=== PATIENT | female | born 1945 | race Caucasian/White ===

== ENCOUNTER → 2018-07-07 | Outpatient (CLI) | payer MEDICARE, BC ==
--- NOTE | 2018-07-10 11:29 | MM ---
Reason for exam: screening (asymptomatic). Last mammogram was performed 3 years and 4 months ago. History: Patient is postmenopausal. Physical Findings: A clinical breast exam by your physician is recommended on an annual basis and results should be correlated with mammographic findings. MG 3D Screening Mammo W/Cad Bilateral CC and MLO view(s) were taken. Prior study comparison: March 10, 2015, bilateral MG screening mammo w CAD. January 03, 2014, bilateral digital screening mammo w/CAD. There are scattered fibroglandular densities. There are benign appearing round vascular calcifications bilaterally. There is no discrete abnormality. ASSESSMENT: Benign, BI-RAD 2 RECOMMENDATION: Routine screening mammogram of both breasts in 1 year.
== END ==
LOC: RADMAMWWP 12:47
PROVIDERS: ATTEND Family Medicine
DX: Z12.31 Encounter for screening mammogram for malignant neoplasm of breast (principal)
CPT/HCPCS: 77063; 77067

== ENCOUNTER → 2023-03-04 | Outpatient (CLI) | payer MEDICARE, BC ==
--- NOTE | 2023-03-04 15:57 | MR ---
EXAMINATION TYPE: MR lumbar spine wo con DATE OF EXAM: 03/04/2023 COMPARISON: 05/09/2015 HISTORY: 77-year-old female M54.50 Lower back pain, radiates into left buttock. TECHNIQUE: Multiplanar, multisequence images of the lumbar spine were acquired without IV contrast. FINDINGS: Redemonstration of a degenerated dextroconvex scoliosis. There may be subtle inferior endplate deformity at L1 towards the left corresponding to a level of co nvex curvature. There is some corresponding edema on STIR sequence and sclerotic features on T1 and T 2. Otherwise, there is moderate degenerative disc disease throughout with variable disc desiccation a nd disc bulging. Variable disc space narrowing as well. Hypertrophic facet arthropathy throughout with levels of ligamentum flavum thickening. Conus medullaris is normal. No suspicious bone marrow replacement. At T12-L1, some ligamentum flavum thickening and minimal disc bulge. No significant spinal canal sten osis. Changes result in moderate right greater than left neuroforaminal stenosis. At L1-L2, diffuse disc bulge with hypertrophic facet arthropathy especially on the left. There is ove rall mild narrowing of the spinal canal and moderate left and mild right neuroforaminal stenosis. At L2-L3, disc bulge. Left lateral recess stenosis due to the curvature. Facet arthropathy. Moderate left greater than right neuroforaminal stenosis. At L3-L4, diffuse disc bulge with marked ligamentum flavum thickening and hypertrophic facet arthropa thy. Changes result in moderate to severe focal spinal canal stenosis that appears slightly progresse d from prior. There is severe left and moderate neural foraminal stenosis. At L4-L5, and ligament flavum thickening with hypertrophic facet arthropathy. Mild circumferential at tenuation of the thecal sac without significant spinal canal stenosis. Changes result in a moderate t o severe right and moderate mild left neuroforaminal stenosis. At L5-S1, ligamentum flavum thickening with hypertrophic facet arthropathy. There is moderate right n euroforaminal stenosis. AP alignment is maintained. Multiple bilateral parapelvic cysts measuring up to 2.6 cm and the left kidney. IMPRESSION: 1. Degenerated dextroconvex scoliosis is redemonstrated. They may be an interval subtle subacute infe rior endplate deformity of L1 towards the left. Overall height is maintained at this time. 2. [id number] multilevel degenerative disc disease advanced hypertrophic facet arthropathy thro ughout. Scattered ligamentum flavum thickening. 3. Changes resulting in moderate to severe focal spinal canal stenosis at L3-L4 that may be slightly progressed from prior. Mild overall narrowing at L1-L2. Otherwise, no jeannette canal compromise. 4. Variable neural foraminal stenoses as outlined above.
== END | disposition home or self-care (01) ==
LOC: RADMRIMAIN 12:46
PROVIDERS: ATTEND Family Medicine
DX: M51.37 Other intervertebral disc degeneration, lumbosacral region (principal); M99.73 Connective tissue and disc stenosis of intervertebral foramina of lumbar region; M47.816 Spondylosis without myelopathy or radiculopathy, lumbar region; M43.9 Deforming dorsopathy, unspecified
CPT/HCPCS: 72148

== ENCOUNTER 2023-03-07 16:52 | Observation (INO) | payer MEDICARE, BC ==
--- NOTE | 2023-03-07 17:23 | ED ---
General Adult HPI - General Chief complaint: Shortness of Breath Stated complaint: sob Time Seen by Provider: 03/07/23 17:13 Source: patient, RN notes reviewed, old records reviewed Mode of arrival: ambulatory Limitations: no limitations - History of Present Illness Initial comments: 77-year-old female presenting for evaluation of dyspnea and palpitations. Patient states her symptoms began approximately one week ago and was initially weakness, fatigue, and nausea with poor appetite. About 5 days ago she developed palpitations and the exertional dyspnea. She had a recent travel with prolonged airplane ride. She reports weight loss over this. Due to poor intake. No fever. No central chest pain. - Related Data Home Medications Medication Instructions Recorded Confirmed Aspirin [Adult Low Dose Aspirin EC] 81 mg PO DAILY 08/14/15 03/07/23 Donepezil HCl 5 mg PO DAILY 08/14/15 03/07/23 Levothyroxine Sodium [Synthroid] 50 mcg PO DAILY 08/14/15 03/07/23 Metoprolol Tartrate 12.5 mg PO BID 08/14/15 03/07/23 Rosuvastatin [Crestor] 10 mg PO HS 08/14/15 03/07/23 Bumetanide [BUMEX] 0.5 mg PO DAILY 03/07/23 03/07/23 Gabapentin [Neurontin] 300 mg PO TID 03/07/23 03/07/23 Allergies Allergy/AdvReac Type Severity Reaction Status Date / Time morphine AdvReac Nausea & Verified 03/07/23 17:57 Vomiting Review of Systems ROS Statement: Those systems with pertinent positive or pertinent negative responses have been documented in the HPI. ROS Other: All systems not noted in ROS Statement are negative. Past Medical History Past Medical History: Hyperlipidemia, Hypertension, Thyroid Disorder History of Any Multi-Drug Resistant Organisms: None Reported Past Surgical History: No Surgical Hx Reported Past Psychological History: No Psychological Hx Reported Smoking Status: Never smoker Past Alcohol Use History: None Reported Past Drug Use History: None Reported General Exam Limitations: no limitations General appearance: alert, in no apparent distress Head exam: Present: atraumatic, normocephalic Eye exam: Present: normal appearance, PERRL ENT exam: Present: normal exam Neck exam: Present: normal inspection. Absent: tenderness, meningismus Respiratory exam: Absent: respiratory distress, wheezes, rales, rhonchi Cardiovascular Exam: Present: normal rhythm, tachycardia GI/Abdominal exam: Present: soft. Absent: distended, tenderness, guarding Extremities exam: Present: calf tenderness (Bilateral). Absent: pedal edema Neurological exam: Present: alert, oriented X3, CN II-XII intact. Absent: motor sensory deficit Psychiatric exam: Present: normal affect, normal mood Skin exam: Present: warm, dry, intact. Absent: cyanosis, diaphoretic Course Vital Signs 03/07/23 03/07/23 03/07/23 17:08 17:32 18:00 Temperature 98.2 F Pulse Rate 107 H 90 90 Respiratory 20 17 18 Rate Blood Pressure 97/68 115/73 O2 Sat by Pulse 84 L 96 92 L Oximetry 03/07/23 03/07/23 03/07/23 18:55 19:10 19:49 Temperature Pulse Rate Respiratory Rate Blood Pressure O2 Sat by Pulse 92 L 100 96 Oximetry Medical Decision Making - Medical Decision Making Was pt. sent in by a medical professional or institution (, PA, WOOD BUCKER, urgent care, hospital, or halfway...) When possible be specific @ -No Did you speak to anyone other than the patient for history (EMS, parent, family, police, friend...)? What history was obtained from this source @ -[Patient's daughter Did you review nursing and triage notes (agree or disagree)? Why? @ -I reviewed and agree with nursing and triage notes Were old charts reviewed (outside hosp., previous admission, EMS record, old EKG, old radiological studies, urgent care reports/EKG's, halfway records)? Report findings @ -No old charts were reviewed Differential Diagnosis (chest pain, altered mental status, abdominal pain women, abdominal pain men, vaginal bleeding, weakness, fever, dyspnea, syncope, headache, dizziness, GI bleed, back pain, seizure, CVA, palpatations, mental health, musculoskeletal)? @ -Differential Dyspnea: Coronary syndrome, arrhythmia, tamponade, asthma, COPD, pulmonary embolism, pneumonia, pneumothorax, pulmonary effusion, anaphylaxis, diabetic ketoacidosis, flailed chest, pulmonary contusion, diaphragmatic rupture, anemia, neuromuscular, this is not meant to be an all-inclusive list. EKG interpreted by me (3pts min.). @ -Sinus rhythm rate of 84, OH interval 181, QRS duration 100, QTC 429, no ST segment elevation. X-rays interpreted by me (1pt min.). @ -[Chest XR negative for pneumothorax, no focal pneumonia CT interpreted by me (1pt min.). @ -[CT showing cardiomegaly with vascular prominence, no PE U/S interpreted by me (1pt. min.). @ -None done What testing was considered but not performed or refused? (CT, X-rays, U/S, labs)? Why? @ -None What meds were considered but not given or refused? Why? @ -None Did you discuss the management of the patient with other professionals (professionals i.e. , PA, WOOD BUCKER, lab, RT, psych nurse, social problems specialist, sharepoint web developer, teacher, job placement officer, watch case polisher)? Give summary @ -[Dr. Jackson Was smoking cessation discussed for >3mins.? @ -No Was critical care preformed (if so, how long)? @ -No Were there social determinants of health that impacted care today? How? (Homelessness, low income, unemployed, alcoholism, drug addiction, transpo rtation, low edu. Level, literacy, decrease access to med. care, care home, rehab)? @ -No Was there de-escalation of care discussed even if they declined (Discuss DNR or withdrawal of care, Hospice)? DNR status @ -No What co-morbidities impacted this encounter? (DM, HTN, Smoking, COPD, CAD, Cancer, CVA, ARF, Chemo, Hep., AIDS, mental health diagnosis, sleep apnea, morbid obesity)? @ -[CHF Was patient admitted / discharged? Hospital course, mention meds given and route, prescriptions, significant lab abnormalities, going to OR and other pertinent info. @ -77-year-old female with dyspnea, hypoxia, recent travel. Patient is worked up for dyspnea including CBC, CMP, troponin and BNP. She receives an EKG chest x-ray and CT angiography. Ultimately CT is showing cardiomegaly with increased vascular prominence. This may be related to CHF although her troponin and BNP are negative. Patient will benefit from echo she will be admitted for elective replacement including hypokalemia as well as Lasix for CHF. She'll be admitted to internal medicine with cardiology on consult. Undiagnosed new problem with uncertain prognosis? @ -No Drug Therapy requiring intensive monitoring for toxicity (Heparin, Nitro, Insulin, Cardizem)? @ -No Were any procedures done? @ -No] Diagnosis/symptom? @ -Hypoxia, CHF, hypokalemia Acute, or Chronic, or Acute on Chronic? @ -[Acute Uncomplicated (without systemic symptoms) or Complicated (systemic symptoms)? @ -[default] Side effects of treatment? @ -[No] Exacerbation, Progression, or Severe Exacerbation? @ -[No] Poses a threat to life or bodily function? How? (Chest pain, USA, NH, pneumonia, PE, COPD, DKA, ARF, appy, cholecystitis, CVA, Diverticulitis, Homicidal, Suicidal, threat to staff... and all critical care pts) @ -[Yes, hypoxia, respiratory failure - Lab Data Result diagrams: 03/07/23 17:32 03/07/23 17:32 Lab Results 03/07/23 03/07/23 03/07/23 Range/Units 17:32 17:32 17:32 WBC 10.0 (3.8-10.6) k/uL RBC 5.16 (3.80-5.40) m/uL Hgb 16.1 H (11.4-16.0) gm/dL Hct 46.4 H (34.0-46.0) % MCV 89.9 (80.0-100.0) fL MCH 31.2 (25.0-35.0) pg MCHC 34.7 (31.0-37.0) g/dL RDW 15.0 (11.5-15.5) % Plt Count 256 (150-450) k/uL MPV 7.6 Neutrophils % 71 % Lymphocytes % 21 % Monocytes % 5 % Eosinophils % 2 % Basophils % 0 % Neutrophils # 7.1 (1.3-7.7) k/uL Lymphocytes # 2.1 (1.0-4.8) k/uL Monocytes # 0.5 (0-1.0) k/uL Eosinophils # 0.2 (0-0.7) k/uL Basophils # 0.0 (0-0.2) k/uL PT 10.6 (9.0-12.0) sec INR 1.0 (<1.2) APTT 21.8 L (22.0-30.0) sec Sodium 135 L (137-145) mmol/L Potassium 2.7 L* (3.5-5.1) mmol/L Chloride 93 L (98-107) mmol/L Carbon Dioxide 32 H (22-30) mmol/L Anion Gap 10 mmol/L BUN 31 H (7-17) mg/dL Creatinine 0.90 (0.52-1.04) mg/dL Est GFR (CKD-EPI)AfAm 71 (>60 ml/min/1.73 sqM) Est GFR (CKD-EPI)NonAf 62 (>60 ml/min/1.73 sqM) Glucose 118 H (74-99) mg/dL Plasma Lactic Acid Ken (0.7-2.0) mmol/L Calcium 9.6 (8.4-10.2) mg/dL Magnesium (1.6-2.3) mg/dL Total Bilirubin 1.8 H (0.2-1.3) mg/dL AST 34 (14-36) U/L ALT 32 (4-34) U/L Alkaline Phosphatase 159 H (38-126) U/L Troponin I (0.000-0.034) ng/mL NT-Pro-B Natriuret Pep pg/mL Total Protein 6.8 (6.3-8.2) g/dL Albumin 4.2 (3.5-5.0) g/dL 03/07/23 03/07/23 03/07/23 Range/Units 17:32 17:32 17:32 WBC (3.8-10.6) k/uL RBC (3.80-5.40) m/uL Hgb (11.4-16.0) gm/dL Hct (34.0-46.0) % MCV (80.0-100.0) fL MCH (25.0-35.0) pg MCHC (31.0-37.0) g/dL RDW (11.5-15.5) % Plt Count (150-450) k/uL MPV Neutrophils % % Lymphocytes % % Monocytes % % Eosinophils % % Basophils % % Neutrophils # (1.3-7.7) k/uL Lymphocytes # (1.0-4.8) k/uL Monocytes # (0-1.0) k/uL Eosinophils # (0-0.7) k/uL Basophils # (0-0.2) k/uL PT (9.0-12.0) sec INR (<1.2) APTT (22.0-30.0) sec Sodium (137-145) mmol/L Potassium (3.5-5.1) mmol/L Chloride (98-107) mmol/L Carbon Dioxide (22-30) mmol/L Anion Gap mmol/L BUN (7-17) mg/dL Creatinine (0.52-1.04) mg/dL Est GFR (CKD-EPI)AfAm (>60 ml/min/1.73 sqM) Est GFR (CKD-EPI)NonAf (>60 ml/min/1.73 sqM) Glucose (74-99) mg/dL Plasma Lactic Acid Ken 2.0 (0.7-2.0) mmol/L Calcium (8.4-10.2) mg/dL Magnesium (1.6-2.3) mg/dL Total Bilirubin (0.2-1.3) mg/dL AST (14-36) U/L ALT (4-34) U/L Alkaline Phosphatase (38-126) U/L Troponin I <0.012 (0.000-0.034) ng/mL NT-Pro-B Natriuret Pep 154 pg/mL Total Protein (6.3-8.2) g/dL Albumin (3.5-5.0) g/dL 03/07/23 Range/Units 18:22 WBC (3.8-10.6) k/uL RBC (3.80-5.40) m/uL Hgb (11.4-16.0) gm/dL Hct (34.0-46.0) % MCV (80.0-100.0) fL MCH (25.0-35.0) pg MCHC (31.0-37.0) g/dL RDW (11.5-15.5) % Plt Count (150-450) k/uL MPV Neutrophils % % Lymphocytes % % Monocytes % % Eosinophils % % Basophils % % Neutrophils # (1.3-7.7) k/uL Lymphocytes # (1.0-4.8) k/uL Monocytes # (0-1.0) k/uL Eosinophils # (0-0.7) k/uL Basophils # (0-0.2) k/uL PT (9.0-12.0) sec INR (<1.2) APTT (22.0-30.0) sec Sodium (137-145) mmol/L Potassium (3.5-5.1) mmol/L Chloride (98-107) mmol/L Carbon Dioxide (22-30) mmol/L Anion Gap mmol/L BUN (7-17) mg/dL Creatinine (0.52-1.04) mg/dL Est GFR (CKD-EPI)AfAm (>60 ml/min/1.73 sqM) Est GFR (CKD-EPI)NonAf (>60 ml/min/1.73 sqM) Glucose (74-99) mg/dL Plasma Lactic Acid Ken (0.7-2.0) mmol/L Calcium (8.4-10.2) mg/dL Magnesium 2.3 (1.6-2.3) mg/dL Total Bilirubin (0.2-1.3) mg/dL AST (14-36) U/L ALT (4-34) U/L Alkaline Phosphatase (38-126) U/L Troponin I (0.000-0.034) ng/mL NT-Pro-B Natriuret Pep pg/mL Total Protein (6.3-8.2) g/dL Albumin (3.5-5.0) g/dL Disposition Clinical Impression: Congestive heart failure, Hypokalemia Disposition: ADMITTED IP TO THIS HOSP Condition: Stable Is patient prescribed a controlled substance at d/c from ED?: No Referrals: eYnni Brar DO [Primary Care Provider] - 1-2 days Time of Disposition: 20:01
[2023-03-07 17:43] LABS: Basophils % (A) 0 %; Eosinophils # (A) 0.2 k/uL (0-0.7); Eosinophils % (A) 2 %; HCT 46.4 % (34.0-46.0); HGB 16.1 gm/dL (11.4-16.0); Lymphocytes # (A) 2.1 k/uL (1.0-4.8); Lymphocytes % (A) 21 %; MCH 31.2 pg (25.0-35.0); MCHC 34.7 g/dL (31.0-37.0); MCV 89.9 fL (80.0-100.0); Mean Platelet Volume 7.6; Monocytes # (A) 0.5 k/uL (0-1.0); Monocytes % (A) 5 %; Neutrophils # (A) 7.1 k/uL (1.3-7.7); Neutrophils % (A) 71 %; Platelet Count 256 k/uL (150-450); RBC 5.16 m/uL (3.80-5.40)
--- NOTE | 2023-03-07 17:54 | XR ---
EXAMINATION TYPE: XR chest 1V portable DATE OF EXAM: 03/07/2023 5:41 PM COMPARISON: Chest radiographs from TECHNIQUE: XR chest 1V portable Frontal view of the chest. CLINICAL INDICATION:Female, 77 years old with history of dyspnea; FINDINGS: Lungs/Pleura: There is flattening of the diaphragm with increased lucency of the lungs. No evidence o f pneumothorax, pleural effusion or focal consolidation. Pulmonary vascularity: Unremarkable. Heart/mediastinum: Cardiomediastinal silhouette is unremarkable. Musculoskeletal: No acute osseous pathology. IMPRESSION: 1. No acute cardiopulmonary disease process. 2. COPD changes.
[2023-03-07 17:57] LABS: ALT 32 U/L (4-34); AST 34 U/L (14-36); African American GFR (CKD) 71 (>60 ml/min/1.73 sqM); Albumin 4.2 g/dL (3.5-5.0); Alkaline Phosphatase 159 U/L (38-126); Anion Gap 10 mmol/L; Blood Urea Nitrogen 31 mg/dL (7-17); Calcium 9.6 mg/dL (8.4-10.2); Carbon Dioxide 32 mmol/L (22-30); Chloride 93 mmol/L (98-107); Glucose 118 mg/dL (74-99); Non-African American GFR(CKD) 62 (>60 ml/min/1.73 sqM); Sodium 135 mmol/L (137-145); Total Bilirubin 1.8 mg/dL (0.2-1.3); Total Protein 6.8 g/dL (6.3-8.2)
[2023-03-07 18:02] LABS: Partial Thromboplastin Time 21.8 sec (22.0-30.0)
[2023-03-07 18:05] LABS: Prothrombin Time 10.6 sec (9.0-12.0)
[2023-03-07 18:20] LABS: Potassium 2.7 mmol/L (3.5-5.1)
[2023-03-07] MEDS ORDERED: POTASSIUM CHLORIDE ER 20 MEQ TAB.ER PO STA (18:22)
--- NOTE | 2023-03-07 19:25 | CT ---
EXAMINATION TYPE: CT angio chest CT DLP: 320.7 mGycm, Automated exposure control for dose reduction was used. DATE OF EXAM: 03/07/2023 7:05 PM COMPARISON: Chest radiograph from same day. CLINICAL INDICATION:Female, 77 years old with history of abril/hypoxia; ABRIL/hypoxia TECHNIQUE/CONTRAST: CTA scan of the thorax is performed with IV Contrast, patient injected with 63ml mL of Isovue 370, pu lmonary embolism protocol. MIP images are created and reviewed these are created on a separate works tation.. FINDINGS: Pulmonary Artery: There is no evidence for a filling defect within the pulmonary vasculature to sugge st acute pulmonary embolism. The pulmonary artery is of normal size. Lungs/Pleura: Intralobular septal thickening is present. Right upper lung 4 mm pulmonary nodule. No e vidence of focal consolidation, pleural effusion or pneumothorax. Airway: Large airways are patent. Heart: The heart is enlarged for size. Vasculature: Mild atherosclerotic calcifications are present throughout the aorta and its branches. Mediastinum: No gross evidence of adenopathy. Musculoskeletal: No acute osseous abnormalities Soft Tissues: Unremarkable. Lower neck: No significant findings. Upper Abdomen: Gallbladder surgically absent. IMPRESSION: 1. No evidence of pulmonary embolism. 2. Cardiomegaly with pulmonary vascular prominence correlate with serum BNP. 3. Right upper lung 4 mm pulmonary nodule consider follow-up in one year to ensure stability.
[2023-03-07] MEDS ORDERED: FUROSEMIDE 10 MG/ML 4 ML VIAL IV STA (19:52)
[2023-03-07] MEDS ORDERED: NALOXONE 0.4 MG/ML 1 ML VIAL IV PRN (19:53)
[2023-03-07] MEDS ORDERED: ACETAMINOPHEN TAB 325 MG TAB PO PRN (19:53)
[2023-03-07] MEDS: POTASSIUM CHLORIDE 10 MEQ in WATER FOR INJECTION 1 100ML.BAG IVPB SCH ×3 (20:05→22:47)
[2023-03-08] MEDS: POTASSIUM CHLORIDE 10 MEQ in WATER FOR INJECTION 1 100ML.BAG IVPB SCH (00:02)
[2023-03-08] MEDS: METOPROLOL TARTRATE 12.5 MG TAB PO SCH ×3 (00:02→20:40)
[2023-03-08] MEDS ORDERED: BUMETANIDE 0.5 MG TABLET PO SCH (09:00)
[2023-03-08 10:18] LABS: African American GFR (CKD) 71 (>60 ml/min/1.73 sqM); Anion Gap 6 mmol/L; Blood Urea Nitrogen 28 mg/dL (7-17); Calcium 8.8 mg/dL (8.4-10.2); Carbon Dioxide 32 mmol/L (22-30); Chloride 97 mmol/L (98-107); Glucose 95 mg/dL (74-99); Non-African American GFR(CKD) 62 (>60 ml/min/1.73 sqM); Potassium 2.9 mmol/L (3.5-5.1); Sodium 135 mmol/L (137-145)
--- NOTE | 2023-03-08 10:52 | P.CRDCN ---
History of Present Illness History of present illness: HISTORY OF PRESENT ILLNESS: This is a 77-year-old female with a past medical history significant for hypertension, hyperlipidemia, congestive heart failure, and hypothyroidism. Patient follows with a Dr. Ann in [facility]. We have been asked to see the patient in consultation for congestive heart failure. Patient examined at the bedside. Patient states that she recently went on vacation with some friends and was very stressed about being so far away from home. She states that she lost her appetite and has lost approximately 20 pounds in the last month. She states over the course of the last week she has been feeling short of breath with exertion and having palpitations. She states the symptoms are only present when she is exerting herself. She is currently laying flat in bed and denies any symptoms. She does report having some dizziness and lightheadedness when ambulating. She denies any chest pain or pressure. She states that she has a yearly stress test with her primary hand mexican food maker which are negative to her knowledge. * EKG reveals sinus mechanism with no signs of acute ischemia * Chest xray no acute cardio pulmonary disease. COPD changes. * Laboratory data: W BC 10.0. Hemoglobin 16.1. Platelet count 256. Sodium 135. Potassium 2.9. BUN 28. Creatinine 0.98. Troponin negative 1. ProBNP 154. * Current home cardiac medications include Bumex 0.5 mg daily, aspirin 81 mg daily, Crestor 10 mg at night, metoprolol tartrate toe 0.5 mg twice a day REVIEW OF SYSTEMS: At the time of my exam: CONSTITUTIONAL: Denies fever or chills. HEENT: Denies blurred vision, vision changes, or eye pain. Denies hemoptysis CARDIOVASCULAR: Denies chest pain. Denies orthopnea. Denies PND. Denies palpitations RESPIRATORY: Denies shortness of breath. GASTROINTESTINAL: Denies abdominal pain. Denies nausea or vomiting. HEMATOLOGIC: Denies bleeding disorders. GENITOURINARY: Denies any blood in urine. SKIN: Denies pruitis. Denies rash. PHYSICAL EXAM: VITAL SIGNS: Reviewed. GENERAL: Well-developed in no acute distress. HEENT: Head is normocephalic. Pupils are equal, round. Sclerae anicteric. Mucous membranes of the mouth are moist. Neck supple. No JVD or thyromegaly LUNGS: Respirations even and unlabored. Lungs essentially clear to auscultation bilaterally. HEART: Regular rate and rhythm. S1 and S2 heard. ABDOMEN: Soft. Nondistended. Nontender. EXTREMITIES: Normal range of motion. No clubbing or cyanosis. Peripheral pulses intact. No lower extremity edema NEUROLOGIC: Awake and alert. Oriented x 3. ASSESSMENT: Shortness of breath and palpitations with exertion Recent weight loss of 20 pounds Chronic congestive heart failure, type unknown, currently euvolemic, no evidence of acute exacerbation Hypokalemia Hypertension Hyperlipidemia History of hypothyroidism PLAN: Obtain 2-D echo to assess cardiac structure and function Resume home cardiac medications Discontinue IV lasix. Hold Bumex now and at discharge. Patient may be discharged home this afternoon Patient to follow up with her primary hand mexican food maker Nurse practitioner note has been reviewed by physician. Signing provider agrees with the documented findings, assessment, and plan of care. Past Medical History Past Medical History: Hyperlipidemia, Hypertension, Thyroid Disorder History of Any Multi-Drug Resistant Organisms: None Reported Past Surgical History: Section, Cholecystectomy, Hysterectomy Past Anesthesia/Blood Transfusion Reactions: No Reported Reaction Past Psychological History: No Psychological Hx Reported Smoking Status: Never smoker Past Alcohol Use History: None Reported Past Drug Use History: None Reported - Past Family History Mother Family Medical History: Cancer Medications and Allergies Home Medications Medication Instructions Recorded Confirmed Type Aspirin [Adult Low Dose Aspirin EC] 81 mg PO DAILY 08/14/15 03/07/23 History Donepezil HCl 5 mg PO DAILY 08/14/15 03/07/23 History Levothyroxine Sodium [Synthroid] 50 mcg PO DAILY 08/14/15 03/07/23 History Metoprolol Tartrate 12.5 mg PO BID 08/14/15 03/07/23 History Rosuvastatin [Crestor] 10 mg PO HS 08/14/15 03/07/23 History Bumetanide [BUMEX] 0.5 mg PO DAILY 03/07/23 03/07/23 History Gabapentin [Neurontin] 300 mg PO TID 03/07/23 03/07/23 History Allergies Allergy/AdvReac Type Severity Reaction Status Date / Time morphine AdvReac Nausea & Verified 03/07/23 17:57 Vomiting Physical Exam Vitals: Vital Signs Temp Pulse Pulse Pulse Resp BP BP 03/08/23 08:15 97.9 F 108 H 16 108/62 03/08/23 03:38 98.2 F 77 16 99/66 03/08/23 00:00 97.9 F 76 18 103/63 03/07/23 22:00 85 16 118/74 03/07/23 21:00 03/07/23 19:49 03/07/23 19:10 03/07/23 18:55 03/07/23 18:00 90 18 115/73 03/07/23 17:32 90 17 03/07/23 17:08 98.2 F 107 H 20 97/68 Pulse Ox 03/08/23 08:15 93 L 03/08/23 03:38 93 L 03/08/23 00:00 93 L 03/07/23 22:00 95 03/07/23 21:00 96 03/07/23 19:49 96 03/07/23 19:10 100 03/07/23 18:55 92 L 03/07/23 18:00 92 L 03/07/23 17:32 96 03/07/23 17:08 84 L Intake and Output 03/07/23 03/08/23 03/08/23 22:59 06:59 14:59 Intake Total 180 Output Total 100 Balance -100 180 Intake: Oral 180 Output: Urine 100 Other: Weight 81.647 kg 81.5 kg Results 03/07/23 17:32 03/08/23 09:48 Cardiac Enzymes 03/07/23 03/07/23 Range/Units 17:32 17:32 AST 34 (14-36) U/L Troponin I <0.012 (0.000-0.034) ng/mL Coagulation 03/07/23 Range/Units 17:32 PT 10.6 (9.0-12.0) sec APTT 21.8 L (22.0-30.0) sec CBC 03/07/23 Range/Units 17:32 WBC 10.0 (3.8-10.6) k/uL RBC 5.16 (3.80-5.40) m/uL Hgb 16.1 H (11.4-16.0) gm/dL Hct 46.4 H (34.0-46.0) % Plt Count 256 (150-450) k/uL Comprehensive Metabolic Panel 03/07/23 Range/Units 17:32 Sodium 135 L (137-145) mmol/L Potassium 2.7 L* (3.5-5.1) mmol/L Chloride 93 L (98-107) mmol/L Carbon Dioxide 32 H (22-30) mmol/L BUN 31 H (7-17) mg/dL Creatinine 0.90 (0.52-1.04) mg/dL Glucose 118 H (74-99) mg/dL Calcium 9.6 (8.4-10.2) mg/dL AST 34 (14-36) U/L ALT 32 (4-34) U/L Alkaline Phosphatase 159 H (38-126) U/L Total Protein 6.8 (6.3-8.2) g/dL Albumin 4.2 (3.5-5.0) g/dL Current Medications Generic Name Dose Route Start Last Admin Trade Name Freq PRN Reason Stop Dose Admin Acetaminophen 650 mg 03/07/23 19:53 Acetaminophen Tab 325 Mg Tab PO Q6HR PRN Mild Pain or Fever > 100.5 Metoprolol Tartrate 12.5 mg 03/07/23 23:45 03/08/23 08:16 Metoprolol Tartrate 12.5 Mg Tab PO 12.5 mg BID JACOB Administration Naloxone HCl 0.2 mg 03/07/23 19:53 Naloxone 0.4 Mg/Ml 1 Ml Vial IV Q2M PRN Opioid Reversal Intake and Output 03/07/23 03/08/23 03/08/23 22:59 06:59 14:59 Intake Total 180 Output Total 100 Balance -100 180 Intake: Oral 180 Output: Urine 100 Other: Weight 81.647 kg 81.5 kg 03/07/23 17:32 03/07/23 17:32
[2023-03-08] MEDS: ASPIRIN 81 MG PO SCH (12:06)
[2023-03-08] MEDS: POTASSIUM CHLORIDE ER 20 MEQ TAB.ER PO SCH ×2 (12:06→15:36)
--- NOTE | 2023-03-08 13:05 | CA ---
Transthoracic Echo Report Name: Sera Jones Age: 77 Gender: F : 1945 Exam Date: 03/08/2023 10:39 Exam Location: [facility] Ht (in): 67 Wt (lb): 179 Ordering Physician: Ruben Baez MD Attending/Referring Phys: [id number], [facility] [employer] Chair Pacheco Lombardo Procedure CPT: Indications: chf Cardiac Hx: Technical Quality: Very technically difficult study Contrast 1: Lumason Total Dose (mL): 5 Contrast 2: Agitated Saline Total Dose (mL): 10 MEASUREMENTS (Male / Female) Normal Values 2D ECHO LV Diastolic Diameter PLAX 3.4 cm 4.2 - 5.9 / 3.9 - 5.3 cm LV Systolic Diameter PLAX 2.4 cm IVS Diastolic Thickness 1.2 cm 0.6 - 1.0 / 0.6 - 0.9 cm LVPW Diastolic Thickness 1.3 cm 0.6 - 1.0 / 0.6 - 0.9 cm LV Relative Wall Thickness 0.7 RV Internal Dim ED PLAX 2.7 cm LVOT Diameter 2.0 cm Aortic Root Diameter 2.7 cm LA Systolic Diameter LX 2.6 cm 3.0 - 4.0 / 2.7 - 3.8 cm LV Diastolic Volume MOD BP 24.7 cm??? 67 - 155 / 56 - 104 cm??? LV Systolic Volume MOD BP 7.2 cm??? 22 - 58 / 19 - 49 cm??? LV Ejection Fraction MOD BP 70.7 % >= 55 % LV Diastolic Volume MOD 4C 23.7 cm??? LV Systolic Volume MOD 4C 6.3 cm??? LV Ejection Fraction MOD 4C 73.6 % LV Diastolic Length 4C 6.1 cm LV Systolic Length 4C 4.6 cm LV Diastolic Volume MOD 2C 25.6 cm??? LV Systolic Volume MOD 2C 7.9 cm??? LV Ejection Fraction MOD 2C 69.2 % LV Diastolic Length 2C 6.2 cm LV Systolic Length 2C 4.9 cm LA Volume 29.3 cm??? 18 - 58 / 22 - 52 cm??? Ascending Aorta Diameter 2.8 cm DOPPLER AV Peak Velocity 100.9 cm/s AV Peak Gradient 4.1 mmHg LVOT Peak Velocity 89.9 cm/s LVOT Peak Gradient 3.2 mmHg AV Area Cont Eq pk 2.9 cm??? Mitral E Point Velocity 50.9 cm/s Mitral A Point Velocity 78.1 cm/s Mitral E to A Ratio 0.7 MV Deceleration Time 178.7 ms TR Peak Velocity 164.6 cm/s TR Peak Gradient 10.8 mmHg Right Ventricular Systolic Press 16.0 mmHg PV Peak Velocity 84.6 cm/s PV Peak Gradient 2.9 mmHg FINDINGS Left Ventricle Left ventricular ejection fraction is estimated at 55-60%.left ventricular cavity size normal. Normal left ventricular wall motion. Mildly increased left ventricular wall thickness. Right Ventricle Normal right ventricular size. Right Atrium Normal right atrial size. Left Atrium Normal left atrial size. Mitral Valve Structurally normal mitral valve. Mild mitral regurgitation. Aortic Valve Trileaflet aortic valve. No aortic valve stenosis or regurgitation. Tricuspid Valve Tricuspid valve not well visualized. Mild tricuspid regurgitation. Pulmonic Valve Pulmonic valve not well visualized. No pulmonic regurgitation. Pericardium Normal pericardium. Aorta Normal size aortic root and proximal ascending aorta. CONCLUSIONS 1. Normal left ventricle size and systolic function 2. Mild mitral and tricuspid regurgitation Previewed by: Dr. Liz Victoria MD (Electronically Signed) Final Date: 08 March 2023 13:04
[2023-03-08 13:26] VITALS: BMI 28.1
--- NOTE | 2023-03-08 15:52 | CT ---
EXAMINATION TYPE: CT abdomen pelvis wo con DATE OF EXAM: 03/08/2023 COMPARISON: 08/14/2015 HISTORY: 77-year-old female Upset stomach for days CT DLP: 730.9 mGycm. Automated exposure control for dose reduction was used. TECHNIQUE: Contiguous axial scanning of the abdomen and pelvis without IV contrast. Coronal and sagit gerald reconstructions performed. FINDINGS: Heart normal size without pericardial effusion. Groundglass changes in the lower lungs are nonspecifi c. Some emphysematous changes also present. Postsurgical changes GE junction. The wrap appears somewhat patulous extending to the central aspect of the left liver lobe, axial and 13. Noncontrast appearance of the liver, adrenal glands, spleen, and pancreas show no gross abnormality. Hyperdensities within the kidneys favored to represent excreting contrast given the patient's recent CTA chest. Left-sided parapelvic cysts measuring up to 2.3 cm. No dilated small bowel, free fluid, or free air. No mesenteric or retroperitoneal lymphadenopathy. Normal appendix. Sigmoid diverticulosis. No pericolonic inflammatory change. Solid stool distending the rectum up to 5 .5 cm wide. Bladder urine distended. Uterus surgically absent. Both ovaries are visualized. A few pelvic phleboli ths. No abnormal fluid collection the pelvis or pelvic lymphadenopathy. Bones: Dextroconvex scoliosis lumbar spine. Osteopenia. [facility] in the lower thoracic spine. 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 IMPRESSION: 1. Previous Christopher fundoplication. The wrap appears patulous, containing air and extending to abut t he central left liver lobe, axial images 11 through 13. Correlate for any recurrent symptoms. 2. Some groundglass changes in the lower lungs are nonspecific. Correlate for any acute respiratory symptoms to exclude early infiltrates. 3. Sigmoid diverticulosis without acute diverticulitis. Solid stool distending the rectum up to 5.5 cm wide.
[2023-03-08] MEDS ORDERED: ATORVASTATIN 20 MG TAB PO SCH (21:00)
--- NOTE | 2023-03-08 21:42 | P.HPIM ---
History of Present Illness H&P Date: 03/08/23 Sera Jones is a 77 yo F with PMH of hypertension, hyperlipidemia, congestive heart failure, and hypothyroidism who presented to the ED complaining of shortness of breath and palpitations. Patient states that she recently went on vacation and since getting back she has been feeling short of breath with exertion. She also complains of palpitations she describes as heart racing. She does report having some dizziness and lightheadedness when ambulating. She denies any chest pain or pressure. On presentation SpO2 84% on RA, WBC 10.0, Hgb 16.1, Na 135, K 2.7, Cr 0.9, BNP 154, trop negative. CTA with pulmonary vascular prominence and cardiomegaly. Review of Systems All systems: negative Constitutional: Denies chills, Denies fever Eyes: denies blurred vision, denies pain Ears, nose, mouth and throat: Denies headache, Denies sore throat Cardiovascular: Reports dyspnea on exertion, Denies chest pain, Denies shortness of breath Respiratory: Denies cough Gastrointestinal: Denies abdominal pain, Denies diarrhea, Denies nausea, Denies vomiting Genitourinary: Denies dysuria, Denies hematuria Musculoskeletal: Denies myalgias Integumentary: Denies pruritus, Denies rash Neurological: Denies numbness, Denies weakness Psychiatric: Denies anxiety, Denies depression Endocrine: Denies fatigue, Denies weight change Past Medical History Past Medical History: Hyperlipidemia, Hypertension, Thyroid Disorder History of Any Multi-Drug Resistant Organisms: None Reported Past Surgical History: Section, Cholecystectomy, Hysterectomy Past Anesthesia/Blood Transfusion Reactions: No Reported Reaction Past Psychological History: No Psychological Hx Reported Smoking Status: Never smoker Past Alcohol Use History: None Reported Past Drug Use History: None Reported - Past Family History Mother Family Medical History: Cancer Medications and Allergies Home Medications Medication Instructions Recorded Confirmed Type Aspirin [Adult Low Dose Aspirin EC] 81 mg PO DAILY 08/14/15 03/07/23 History Donepezil HCl 5 mg PO DAILY 08/14/15 03/07/23 History Levothyroxine Sodium [Synthroid] 50 mcg PO DAILY 08/14/15 03/07/23 History Metoprolol Tartrate 12.5 mg PO BID 08/14/15 03/07/23 History Rosuvastatin [Crestor] 10 mg PO HS 08/14/15 03/07/23 History Bumetanide [BUMEX] 0.5 mg PO DAILY 03/07/23 03/07/23 History Gabapentin [Neurontin] 300 mg PO TID 03/07/23 03/07/23 History Allergies Allergy/AdvReac Type Severity Reaction Status Date / Time morphine AdvReac Nausea & Verified 03/07/23 17:57 Vomiting Physical Exam Vitals: Vital Signs Temp Pulse Pulse Pulse Resp BP BP 03/08/23 15:35 69 14 104/72 03/08/23 11:35 97.1 F L 80 16 112/76 03/08/23 08:15 97.9 F 108 H 16 108/62 03/08/23 03:38 98.2 F 77 16 99/66 03/08/23 00:00 97.9 F 76 18 103/63 03/07/23 22:00 85 16 118/74 Pulse Ox 03/08/23 15:35 94 L 03/08/23 11:35 95 03/08/23 08:15 93 L 03/08/23 03:38 93 L 03/08/23 00:00 93 L 03/07/23 22:00 95 Intake and Output 03/08/23 03/08/23 03/08/23 06:59 14:59 22:59 Intake Total 300 180 Output Total 100 Balance -100 300 180 Intake: Oral 300 180 Output: Urine 100 Other: # Voids 3 Weight 81.5 kg 81.5 kg Gen: elderly female in NAD HEENT: NC/AT, mmm Neck: supple, no thyromegaly or JVD CV: RRR, no murmur. Pulses 2+ Lungs: Normal effort, clear throughout Abd: soft, nontender, non distended Neuro: AAOx3, no focal deficit Skin: warm and dry Results CBC & Chem 7: 03/07/23 17:32 03/08/23 17:45 Labs: Abnormal Lab Results - Last 24 Hours (Table) 03/07/23 03/08/23 Range/Units 20:13 09:48 Sodium 135 L (137-145) mmol/L Potassium 2.9 L (3.5-5.1) mmol/L Chloride 97 L (98-107) mmol/L Carbon Dioxide 32 H (22-30) mmol/L BUN 28 H (7-17) mg/dL Procalcitonin 0.11 H (0.02-0.09) ng/mL Thrombosis Risk Factor Assmnt - Choose All That Apply Any of the Below Risk Factors Present?: Yes Each Factor Represents 1 point: Obesity (BMI >25) Other Risk Factors: Yes Each Risk Factor Represents 3 Points: Age 75 years or older Thrombosis Risk Factor Assessment Total Risk Factor Score: 4 Thrombosis Risk Factor Assessment Level: Moderate Risk Assessment and Plan Plan: 1. Acute diastolic CHF. Pt given IV lasix 40 mg, Cardiology consult. Obtain echo 2. Palpitations. Continue home metoprolol. Monitor telemetry 3. Hypothyroid. Continue synthroid
[2023-03-08] MEDS: GABAPENTIN 300 MG CAP PO SCH (22:39)
[2023-03-09] MEDS ORDERED: LEVOTHYROXINE 50 MCG TAB PO SCH (06:30)
[2023-03-09] MEDS ORDERED: DONEPEZIL 5 MG TAB PO SCH (09:00)
[2023-03-09 09:21] LABS: African American GFR (CKD) 63 (>60 ml/min/1.73 sqM); Anion Gap 5 mmol/L; Blood Urea Nitrogen 21 mg/dL (7-17); Calcium 8.9 mg/dL (8.4-10.2); Carbon Dioxide 32 mmol/L (22-30); Chloride 97 mmol/L (98-107); Glucose 140 mg/dL (74-99); Magnesium 2.2 mg/dL (1.6-2.3); Non-African American GFR(CKD) 55 (>60 ml/min/1.73 sqM); Sodium 134 mmol/L (137-145)
[2023-03-09] MEDS: METOPROLOL TARTRATE 12.5 MG TAB PO SCH (09:49)
[2023-03-09] MEDS: ASPIRIN 81 MG PO SCH (09:49)
[2023-03-09] MEDS: GABAPENTIN 300 MG CAP PO SCH (09:49)
[2023-03-09 10:14] VITALS: BP 117/63; PULSE 86; RESP 18; TEMP 98.3
--- NOTE | 2023-03-10 20:18 | P.DS ---
Providers Date of admission: 03/07/23 19:53 Expected date of discharge: 03/09/23 Attending physician: Keron Jackson MD Primary care physician: Yenni Brar [facility] Course: Final diagnoses Acute diastolic CHF Palpitations Hypothyroid Hospital course: Sera Jones is a 77 yo F with PMH of hypertension, hyperlipidemia, congestive heart failure, and hypothyroidism who presented to the ED complaining of shortness of breath and palpitations. Patient states that she recently went on vacation and since getting back she has been feeling short of breath with exertion. She also complains of palpitations she describes as heart racing. She does report having some dizziness and lightheadedness when ambulating. She denies any chest pain or pressure. On presentation SpO2 84% on RA, WBC 10.0, Hgb 16.1, Na 135, K 2.7, Cr 0.9, BNP 154, trop negative. CTA with pulmonary vascular prominence and cardiomegaly. Significant clinical improvement. Denies chest pain, palpitations or shortness of breath. Palpitations have resolved. Denies nausea vomiting or diarrhea. Denies abdominal pain. No edema. Evaluated by cardiology, IV Lasix discontinued, recommended holding Bumex now and at discharge-doubt CHF. Echo reporting normal LV function, mild mitral and tricuspid regurgitation. Patient has been advised to follow up with her on field artillery operations specialist after discharge. Patient will be discharged home today in a stable condition with guarded prognosis. The impression and plan of care has been dictated as directed. : I performed a history and examination of this patient, discussed the same with the dictator. I agree with the dictator's note ,documented as a scribe. Any additional findings or plans will be noted. Patient Condition at Discharge: Stable Plan - Discharge Summary Discharge Rx Participant: No New Discharge Prescriptions: Continue Rosuvastatin [Crestor] 10 mg PO HS Metoprolol Tartrate 12.5 mg PO BID Levothyroxine Sodium [Synthroid] 50 mcg PO DAILY Donepezil HCl 5 mg PO DAILY Aspirin [Adult Low Dose Aspirin EC] 81 mg PO DAILY Gabapentin [Neurontin] 300 mg PO TID Discontinued Bumetanide [BUMEX] 0.5 mg PO DAILY Discharge Medication List Aspirin [Adult Low Dose Aspirin EC] 81 mg PO DAILY 08/14/15 [History] Donepezil HCl 5 mg PO DAILY 08/14/15 [History] Levothyroxine Sodium [Synthroid] 50 mcg PO DAILY 08/14/15 [History] Metoprolol Tartrate 12.5 mg PO BID 08/14/15 [History] Rosuvastatin [Crestor] 10 mg PO HS 08/14/15 [History] Gabapentin [Neurontin] 300 mg PO TID 03/07/23 [History] Follow up Appointment(s)/Referral(s): Psych Sales SpecialistDr.-pt's own [Other] - 03/14/23 (As previously scheduled) Keron Jackson MD [STAFF PHYSICIAN] - 1 Week Activity/Diet/Wound Care/Special Instructions: Bumex placed on hold as per cardiology recommendations. Discharge Disposition: HOME WITH HOME HEALTH SERVICES
== END 2023-03-09 14:24 | disposition home health service (06) ==
LOC: EC 16:52 → 3SCARD 19:53 → INTOOBSV 19:53 → 3SCARD 20:27
PROVIDERS: ADMIT Family Medicine; ATTEND Family Medicine
DX: I11.0 Hypertensive heart disease with heart failure (principal); I50.31 Acute diastolic (congestive) heart failure; R00.2 Palpitations; E87.6 Hypokalemia; E03.9 Hypothyroidism, unspecified; E78.5 Hyperlipidemia, unspecified; R63.4 Abnormal weight loss; Z79.82 Long term (current) use of aspirin; Z79.890 Hormone replacement therapy; Z79.899 Other long term (current) drug therapy; Z88.5 Allergy status to narcotic agent
CPT/HCPCS: 96365; 96366; 96375; 99285; 36415; 93005; 83880; 80053; 80048 ×2; 83605; 83735 ×2; 84132; 84484; 85025; 85610; 85730; 84145; 71045; 71275; 74176; G0378 ×3; C8929; J1940; J3480 ×2; Q9950; Q9967; 93306

== ENCOUNTER → 2024-03-19 | Outpatient (CLI) | payer MEDICARE, BC ==
--- NOTE | 2024-03-20 13:17 | MM ---
Reason for Exam: Screening (asymptomatic). Last mammogram was performed 5 year(s) and 8 month(s) ago. Patient History: Menarche at age 11. First Full-Term at age 21. Hysterectomy at age 49. Postmenopausal. Risk Values: Aislinn 5 year model risk: 1.5%. NCI Lifetime model risk: 2.5%. Prior Study Comparison: 01/03/2014 Bilateral Screening Mammogram, [facility]. 03/10/2015 Bilateral Screening Mammogram, [facility]. 07/07/2018 Bilateral Screening Mammogram, [facility]. Tissue Density: There are scattered areas of fibroglandular density. Findings: Analyzed By CAD. Right breast: There is no suspicious group of microcalcifications or new suspicious mass. Benign-appearing calcifications right breast. Left breast: There is no suspicious group of microcalcifications or new suspicious mass. Benign-appearing calcifications left breast. Overall Assessment: Benign, BI-RAD 2 Management: Screening Mammogram of both breasts in [address] [facility] will attempt to contact patient to return for supplemental views and ultrasound if indicated. Patient should continue monthly self-breast exams. A clinical breast exam by your physician is recommended on an annual basis. This exam should not preclude additional follow-up of suspicious palpable abnormalities. Note on Aislinn scores and lifetime risk: 1. A Aislinn score greater than 3% is considered moderate risk. If this is the case, consider specialist referral to assess eligibility for a risk reducing agent. 2. If overall lifetime risk for the development of breast cancer is 20% or higher, the patient may qualify for future screening with alternating mammogram and breast MRI. Electronically signed and approved by: Ruben Lozano DO
== END | disposition home or self-care (01) ==
LOC: RADMAMWWP 14:37
PROVIDERS: ATTEND Family Medicine
DX: Z12.31 Encounter for screening mammogram for malignant neoplasm of breast (principal); Z78.0 Asymptomatic menopausal state
CPT/HCPCS: 77063; 77067